=== PATIENT | male | born 1985 | race African-American/Black ===

== ENCOUNTER 2021-05-02 19:16 | Emergency (ER) | payer OTHER ==
[~2021-05-02] VITALS: Ht 170.2 cm; Wt 81.6 kg
[~2021-05-02 19:16] MED LIST: ADDERALL 15 MG15 MG PO
== END 2021-05-03 | disposition home or self-care (01) ==
LOC: ER 19:16
DX: B34.9 Viral infection, unspecified (principal); Z03.818 Encounter for observation for suspected exposure to other biological agents ruled out; R42 Dizziness and giddiness; J00 Acute nasopharyngitis [common cold]